=== PATIENT | female | born 1975 | race Hispanic/Latino ===

== ENCOUNTER 2024-03-15 14:37 | Inpatient (IN) | payer OTHER ==
[~2024-03-15] VITALS: Ht 165.1 cm; Wt 165.1 kg
[2024-03-15 14:54] VITALS: TEMP 97.5
[2024-03-15 15:14] LABS: BASOPHILS % 0.3 % (0.0-1.0); EOSINOPHILS # (AUTO) 0.3 (0.0-0.4); EOSINOPHILS % 3.1 % (0.0-6.0); HEMATOCRIT 35.3 % (34.2-44.1); HEMOGLOBIN 11.4 g/dL (12.0-16.0); LYMPHOCYTES # (AUTO) 1.6 (1.0-3.2); LYMPHOCYTES % 16.7 % (18.0-39.1); MEAN CORPUSCULAR HEMOGLOBIN 27.8 pg (28-32); MEAN CORPUSCULAR HGB CONC 32.3 g/dL (31-35); MEAN CORPUSCULAR VOLUME 86.1 fL (81-99); MONOCYTES # (AUTO) 0.6 (0.2-0.8); MONOCYTES % 5.9 % (4.4-11.3); NEUTROPHILS % 73.7 % (38.7-80.0); PLATELET COUNT 283 x10e3/uL (140-360); RED CELL DISTRIBUTION WIDTH 16.2 % (11.7-14.4); WHITE BLOOD COUNT 9.44 x10e3/uL (4.8-10.8)
[2024-03-15 15:23] LABS: INR 0.99; PARTIAL THROMBOPLASTIN TIME 33.3 seconds (23.8-35.5); PROTHROMBIN TIME 13.8 seconds (11.9-14.5)
[2024-03-15 15:30] LABS: ALBUMIN 2.8 g/dL (3.5-5.0); ALBUMIN/GLOBULIN RATIO 0.7 (0.8-2.0); ANION GAP 16.6 mmol/L (8-16); BILIRUBIN,TOTAL 0.6 mg/dL (0.2-1.2); CALCIUM 8.6 mg/dL (8.4-10.2); CREATININE, SERUM 0.83 mg/dL (0.57-1.11); POTASSIUM 3.6 mmol/L (3.5-5.1); TOTAL PROTEIN 7.1 g/dL (6.5-8.1)
[2024-03-15] MEDS: CLINDAMYCIN 600MG / 50ML 50 ML IV ONE (16:03)
[2024-03-15] MEDS: SODIUM CHLORIDE 0.9% 1000ML 1,000 ML IV ONE (16:49)
[2024-03-15] MEDS: SODIUM CHLORIDE 0.9% 1000ML 1,000 ML IV SCH (16:49)
[2024-03-15 17:05] VITALS: PULSE 89; RESP 20
[2024-03-15] MEDS: INSULIN REGULAR, HUMAN 100 UNIT/1 ML SQ ONE (17:18)
[2024-03-15 18:00] VITALS: BP 151/85; PULSE 102; RESP 19; TEMP 98.4; O2SAT 100
[2024-03-15] MEDS ORDERED: PIOGLITAZONE HC30 MG PO (18:09)
[2024-03-15] MEDS ORDERED: IBUPROFEN800 MG PO (18:09)
[2024-03-15] MEDS ORDERED: INSULIN AS100 UNIT/3 SQ (18:09)
[2024-03-15] MEDS ORDERED: METFORMIN HCL500 M1 PO (18:09)
[2024-03-15] MEDS ORDERED: ONDANSETRON ODT4 MG SL (18:09)
[2024-03-15] MEDS ORDERED: GABAPENTIN300 MG PO (18:09)
[2024-03-15] MEDS ORDERED: ALLOPURINOL100 MG PO (18:09)
[2024-03-15] MEDS ORDERED: LANTUS 3ML100 UNITS/ SQ (18:09)
[2024-03-15] MEDS ORDERED: OMEPRAZOLE40 MG PO (18:09)
[2024-03-15] MEDS ORDERED: METHOCARBAMOL750 MG PO (18:09)
[2024-03-15] MEDS ORDERED: FENOFIBRATE145 M1 PO (18:09)
[2024-03-15] MEDS ORDERED: NYSTOP60 GM TOP (18:09)
[2024-03-15] MEDS ORDERED: ULTRAM 50MG50 MG PO (18:09)
[2024-03-15] MEDS ORDERED: MELOXICAM15 MG PO (18:09)
[2024-03-15 20:00] VITALS: BP 149/77; PULSE 103; RESP 18; TEMP 98.3; O2SAT 100
[2024-03-15] MEDS: ONDANSETRON HCL INJ 2MG/ML 2ML 2 MG/ML VIAL IV PRN (20:57)
[2024-03-15 21:00] VITALS: BP 136/79; PULSE 107; RESP 18; TEMP 98.7; O2SAT 98
[2024-03-15] MEDS: Morphine 4mg INJECTION 4 MG/ML INJ IV PRN (21:06)
[2024-03-16] VITALS (8 sets, daily range): BP systolic 108–136; BP diastolic 56–82; PULSE 74–107; RESP 18–20; TEMP 97.6–98.7; O2SAT 95–100
[2024-03-16 06:15] LABS: BASOPHILS % 0.5 % (0.0-1.0); EOSINOPHILS # (AUTO) 0.2 (0.0-0.4); EOSINOPHILS % 3.8 % (0.0-6.0); HEMATOCRIT 34.4 % (34.2-44.1); HEMOGLOBIN 10.9 g/dL (12.0-16.0); LYMPHOCYTES # (AUTO) 1.3 (1.0-3.2); LYMPHOCYTES % 20.1 % (18.0-39.1); MEAN CORPUSCULAR HEMOGLOBIN 27.9 pg (28-32); MEAN CORPUSCULAR HGB CONC 31.7 g/dL (31-35); MONOCYTES # (AUTO) 0.4 (0.2-0.8); NEUTROPHILS # (AUTO) 4.3 (2.1-6.9); NEUTROPHILS % 68.1 % (38.7-80.0); PLATELET COUNT 216 x10e3/uL (140-360); RED BLOOD COUNT 3.91 x10e6/uL (3.6-5.1); RED CELL DISTRIBUTION WIDTH 16.4 % (11.7-14.4); WHITE BLOOD COUNT 6.28 x10e3/uL (4.8-10.8)
[2024-03-16 06:49] LABS: POTASSIUM 4.3 mmol/L (3.5-5.1)
[2024-03-16 07:54] LABS: ALBUMIN 2.5 g/dL (3.5-5.0); ALBUMIN/GLOBULIN RATIO 0.7 (0.8-2.0); ANION GAP 2.3 mmol/L (8-16); BILIRUBIN,TOTAL 0.8 mg/dL (0.2-1.2); CREATININE, SERUM 0.6 mg/dL (0.57-1.11); TOTAL PROTEIN 6.2 g/dL (6.5-8.1)
[2024-03-16] MEDS ORDERED: SUGAMMADEX SODIUM 200 MG/2 ML VIAL IV ONE (11:52)
[2024-03-16] MEDS ORDERED: LIDOCAINE HCL 2% LOCAL INJ 5 ML SDV VIAL INJ ONE (12:28)
[2024-03-16] MEDS ORDERED: PROPOFOL IV EMULSION 10 MG/ML 20 ML VIAL ONE (12:28)
[2024-03-16] MEDS ORDERED: ROCURONIUM BROMIDE 10 MG/ML 5ML VIAL IV ONE (12:28)
[2024-03-16] MEDS ORDERED: ONDANSETRON HCL INJ 2MG/ML 2ML 2 MG/ML VIAL ONE (12:28)
[2024-03-16] MEDS ORDERED: SUCCINYLCHOLINE CHLORIDE 20 MG/ML 10ML VIAL ONE (12:28)
[2024-03-16] MEDS ORDERED: METOCLOPRAMIDE HCL 10 MG/2ML VIAL ONE (12:28)
[2024-03-16] MEDS ORDERED: DEXAMETHASONE SOD PHOS INJ 4 MG/ML SDV ONE (12:28)
[2024-03-16] MEDS ORDERED: KETOROLAC TROMETHAMINE 30 MG/ML VIAL ONE (12:28)
[2024-03-16] MEDS ORDERED: SEVOFLURANE INHAL SOLN 250 ML PEN BTL ONE (12:28)
[2024-03-16] MEDS: PIOGLITAZONE HCL 15 MG TAB PO SCH (13:22)
[2024-03-16] MEDS: Vancomycin IV 1 GM in SODIUM CHLORIDE 0.9% 250ML 250 ML IV SCH (13:23)
[2024-03-16] MEDS: INSULIN REGULAR, HUMAN 100 UNIT/1 ML SQ SCH (16:53)
[2024-03-16] MEDS ORDERED: INSULIN ASPART 100 UNITS/ML SC SCH (17:00)
[2024-03-16] MEDS ORDERED: INSULIN ASPART 70/30 100 UNITS/ML VIAL SC SCH (17:00)
[2024-03-16] MEDS ORDERED: FENTANYL CITRATE/PF 100MCG/2 ML INJ ONE (17:36)
[2024-03-16] MEDS ORDERED: INSULIN REGULAR, HUMAN 100 UNIT/1 ML SQ SCH (18:00)
[2024-03-16] MEDS: HYDROCODONE/APAP 7.5MG-325MG 1 EA TAB PO PRN (22:01)
[2024-03-17] VITALS (8 sets, daily range): BP systolic 124–156; BP diastolic 79–88; PULSE 70–75; RESP 18–19; TEMP 97.5–98.2; O2SAT 97–100
[2024-03-17 06:00] LABS: BASOPHILS % 0.1 % (0.0-1.0); EOSINOPHILS % 0.4 % (0.0-6.0); HEMATOCRIT 31.2 % (34.2-44.1); HEMOGLOBIN 10.1 g/dL (12.0-16.0); LYMPHOCYTES # (AUTO) 1.4 (1.0-3.2); LYMPHOCYTES % 13.4 % (18.0-39.1); MEAN CORPUSCULAR HEMOGLOBIN 27.9 pg (28-32); MEAN CORPUSCULAR HGB CONC 32.4 g/dL (31-35); MEAN CORPUSCULAR VOLUME 86.2 fL (81-99); MONOCYTES # (AUTO) 0.6 (0.2-0.8); MONOCYTES % 6.1 % (4.4-11.3); NEUTROPHILS % 79.5 % (38.7-80.0); PLATELET COUNT 277 x10e3/uL (140-360); RED BLOOD COUNT 3.62 x10e6/uL (3.6-5.1); RED CELL DISTRIBUTION WIDTH 15.9 % (11.7-14.4); WHITE BLOOD COUNT 10.09 x10e3/uL (4.8-10.8)
[2024-03-17 06:38] LABS: ANION GAP 10.8 mmol/L (8-16); CREATININE, SERUM 0.58 mg/dL (0.57-1.11); POTASSIUM 3.8 mmol/L (3.5-5.1)
[2024-03-17] MEDS: METFORMIN HCL 500 MG TAB CR PO SCH (08:33)
[2024-03-17] MEDS: PANTOPRAZOLE SOD 40 MG TABEC PO SCH (08:33)
[2024-03-17] MEDS: CEFTRIAXONE 2 GM in SODIUM CHLORIDE 0.9% 100 ML IV SCH (08:33)
[2024-03-17] MEDS: INSULIN GLARGINE 100 UNITS/ML VIAL SQ SCH (08:37)
[2024-03-18] VITALS (7 sets, daily range): BP systolic 118–148; BP diastolic 68–91; PULSE 66–80; RESP 18–20; TEMP 97.6–98.3; O2SAT 98–100
[2024-03-19] VITALS: BP 122/68; PULSE 72; RESP 20; TEMP 97.9; O2SAT 97
[2024-03-19 04:00] VITALS: BP 148/93; PULSE 70; RESP 20; TEMP 97.8; O2SAT 97
[2024-03-19 07:44] VITALS: BP 129/83; PULSE 65; RESP 17; TEMP 97.7; O2SAT 96
[2024-03-19 08:13] VITALS: BP 129/83; PULSE 65; RESP 17; TEMP 97.7; O2SAT 96
[2024-03-19 08:27] LABS: BASOPHILS # (AUTO) 0.1 (0.0-0.1); BASOPHILS % 0.8 % (0.0-1.0); EOSINOPHILS # (AUTO) 0.3 (0.0-0.4); HEMATOCRIT 36.3 % (34.2-44.1); HEMOGLOBIN 11.2 g/dL (12.0-16.0); LYMPHOCYTES # (AUTO) 1.4 (1.0-3.2); LYMPHOCYTES % 23.6 % (18.0-39.1); MEAN CORPUSCULAR HEMOGLOBIN 27.9 pg (28-32); MEAN CORPUSCULAR HGB CONC 30.9 g/dL (31-35); MEAN CORPUSCULAR VOLUME 90.3 fL (81-99); MONOCYTES # (AUTO) 0.4 (0.2-0.8); MONOCYTES % 6.1 % (4.4-11.3); NEUTROPHILS # (AUTO) 3.8 (2.1-6.9); NEUTROPHILS % 63.8 % (38.7-80.0); PLATELET COUNT 273 x10e3/uL (140-360); RED BLOOD COUNT 4.02 x10e6/uL (3.6-5.1); RED CELL DISTRIBUTION WIDTH 16.6 % (11.7-14.4); WHITE BLOOD COUNT 6.02 x10e3/uL (4.8-10.8)
[2024-03-19 08:49] LABS: ANION GAP 14.8 mmol/L (8-16); CALCIUM 8.8 mg/dL (8.4-10.2); CREATININE, SERUM 0.62 mg/dL (0.57-1.11); POTASSIUM 3.8 mmol/L (3.5-5.1)
[2024-03-19] MEDS: PIOGLITAZONE HCL 15 MG TAB PO SCH (09:28)
[2024-03-19 12:39] VITALS: BP 136/84; PULSE 76; RESP 20; TEMP 98.3; O2SAT 96
[2024-03-19 20:13] VITALS: BP 173/94; PULSE 89; RESP 20; TEMP 98.2; O2SAT 98
== END 2024-03-19 20:55 | disposition home or self-care (01) | DRG 623 ==
LOC: ER 14:59 → ERHOLD 16:20 → MED/SURG2 17:35 → OBSVTOIN 03-16 16:00
PROVIDERS: ADMIT Internal Medicine; ATTEND Internal Medicine
PROC: 0JB80ZZ Excision of Abdomen Subcutaneous Tissue and Fascia, Open Approach (ICD-10-PCS; principal; 2024-03-16 11:15)
PROC: 02HV33Z Insertion of Infusion Device into Superior Vena Cava, Percutaneous Approach (ICD-10-PCS; 2024-03-18)
DX: E11.628 Type 2 diabetes mellitus with other skin complications (principal); I96 Gangrene, not elsewhere classified; L02.211 Cutaneous abscess of abdominal wall; L03.311 Cellulitis of abdominal wall; E66.01 Morbid (severe) obesity due to excess calories; Z68.44 Body mass index [BMI] 60.0-69.9, adult; E11.65 Type 2 diabetes mellitus with hyperglycemia; G89.4 Chronic pain syndrome; Z79.4 Long term (current) use of insulin; Z79.84 Long term (current) use of oral hypoglycemic drugs; Z90.49 Acquired absence of other specified parts of digestive tract
CPT/HCPCS: 36415; 80048; 80053; 80202; 82948; 85025; 85610; 85730; 99252; 99284; G0378; J0330; J0696; J1100; J1815; J1885; J2001; J2270; J2405; J2765; J7030; J7050; U0002